=== PATIENT | female | born 1945 | race American Indian/Alaskan Native ===

== ENCOUNTER 2018-09-11 08:12 | Outpatient (CLI) | payer MEDICARE, OTHER | END 2018-09-11 08:13 | disposition home or self-care (01) | LOC: C.LAB 08:12 | DX: E78.2 Mixed hyperlipidemia (principal); I10 Essential (primary) hypertension; E03.9 Hypothyroidism, unspecified; E11.9 Type 2 diabetes mellitus without complications; R79.9 Abnormal finding of blood chemistry, unspecified ==